=== PATIENT | female | born 1975 | race Two or more races ===

== ENCOUNTER 2024-05-24 14:44 | Outpatient (CLI) | payer OTHER | END 2024-05-24 14:49 | disposition home or self-care (01) | LOC: MAMO-SONO 14:44 | DX: N60.19 Diffuse cystic mastopathy of unspecified breast (principal); R92.8 Other abnormal and inconclusive findings on diagnostic imaging of breast; Z12.31 Encounter for screening mammogram for malignant neoplasm of breast ==